=== PATIENT | male | born 1960 | race Asian ===

== ENCOUNTER 2021-01-19 17:31 | Emergency (ER) | payer OTHER ==
[~2021-01-19] VITALS: Ht 157.5 cm; Wt 52.3 kg
[2021-01-19] MEDS ORDERED: HTN MED PO (17:39)
[2021-01-19] MEDS ORDERED: PERTUSS(ACELL),DIPH,TET VAC/PF 0.5 ML SYRINGE IM ONE (18:00)
[2021-01-19] MEDS ORDERED: LIDOCAINE 1% 10 ML VIAL SQ ONE (18:00)
[2021-01-19] MEDS ORDERED: BACITRACIN 0.9 GM PACKET OINTMENT TP ONE (18:15)
[2021-01-19 18:48] VITALS: BP 130/78
== END 2021-01-19 18:49 | disposition home or self-care (01) ==
LOC: EMS 17:31
DX: S61.212A Laceration without foreign body of right middle finger without damage to nail, initial encounter (principal); I10 Essential (primary) hypertension; W45.8XXA Other foreign body or object entering through skin, initial encounter; Y93.89 Activity, other specified; Y92.89 Other specified places as the place of occurrence of the external cause; Y99.8 Other external cause status
CPT/HCPCS: 12002; 90471; 90715; 99283; J3490